=== PATIENT | female | born 1960 ===

== ENCOUNTER 2024-01-05 09:30 | Outpatient (AMB) | payer MEDICARE, SELFPAY ==
--- NOTE | 2024-01-05 09:37 | AM.OFFWIN_ITS ---
Intake Vital Signs 01/05/24 09:39 Height 5 ft 7 in Weight 224 lb BMI 35.1 BP 120/60 Blood Pressure Location Lt brachial Position Sitting Intake Visit Reasons: eye issue ,cough Intake Note: Patient is here today for left eye puss issues and cough since 01/01/24 with phlegms, congestion. No fever, chills nor body aches. Did not test for covid. 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 Accompanied by: Spouse Allergies No Known Allergies Allergy (Verified 01/05/24 09:54) Medication List - Last Reconciled 01/05/24 by Millie Ragsdale, HOT BREAD BAKER-WOOD thyroid (pork) (F[place]um Thyroid) 120 mg PO DAILY Do you need a note to return to daycare/school/sports/work: No HPI HPI Comments History of Present Illness Details Here today with her with complaints of cough and pink eye Left eye purulent drainage last night, crusted shut this AM, Feels scratchy and dry Used saline drops last night Exposed to a grandchild with pink eye like symptoms in the past week Went to a marriage retreat and was exposed to several people who did not exhibit any overt signs of being ill. However her URI symptoms started 24 hours later. She 1st started with a cough on Monday which was nonproductive at 1st. However she now has a productive cough with green to yellow mucus. Does not receive vaccines [facility] Social History Patient Tobacco Use Status: Never used Tobacco Review of Systems Const All systems reviewed & are unremarkable except as noted in HPI and below Physical Exam Vital Signs: Last Vital Signs BP 120/60 01/05/24 09:39 BMI result Body Mass Index 35.1 Const Other: Awake alert oriented accompanied by Left conjunctiva injected, purulent crusting noted and lashes upper and lower. EOMI, PERRLA. Right conjunctiva normal. Sclera is nonicteric bilat. No periorbital findings bilat TM intact and clear bilat Nares with clear drainage bilat, turbinates within normal limits Pharynx within normal limits Regular rate and rhythm Lung sounds clear to auscultation bilat, occasional clearing of throat and dry cough noted during exam without respiratory distress Assessment & Plan Assessment & Plan (1) Acute bacterial conjunctivitis: Code(s): H10.30 - Unspecified acute conjunctivitis, unspecified eye Qualifiers: Laterality: left Qualified Code(s): H10.32 - Unspecified acute conjunctivitis, left eye Plan: Put cold or warm wet cloths on your eye a few times a day if the eye hurts. Do not wear contact lenses or eye makeup until the pink eye is gone. Throw away any eye makeup you were using when you got pink eye. Clean your contacts and storage case. Wash bed linen after 24 hours of antibiotic eye drop use. Do not share eye drops. Use a clean towel to wash your face each day until symptoms are gone. This will help prevent recurrence. What is pink eye? [place] eye is a term people use to describe an infection or irritation of the eye. The medical term for pink eye is conjunctivitis. If you have pink eye, your eye (or eyes) might: ?Turn pink or red ?Weep or ooze a gooey liquid ?Become itchy or burn ?Get stuck shut, especially when you first wake up [place] eye can be caused by an infection, allergies, or an unknown irritation. Can you catch pink eye from someone else? Yes. When pink eye is caused by an infection, it can spread easily. Usually, people catch it from touching something that has been in contact with an infected person's eye. It can also be spread when an infected person touches someone else, and then that person touches their eye. If someone you know has pink eye, avoid touching their pillowcases, towels, or other personal items. When should I see a doctor or nurse? See your doctor or nurse if your eye hurts, or if you still have trouble seeing clearly after blinking. If you do not have these problems, but think you might have pink eye, your doctor or nurse might be able to give you advice over the phone. Can pink eye be treated? Most cases of pink eye go away on their own without treatment. But some types of pink eye can be treated. When pink eye is caused by infection, it is usually caused by a virus, so antibiotics will not help. Still, pink eye caused by a virus can last several days. ?[place] eye caused by an infection with bacteria can be treated with antibiotic eye drops, gel, or ointment. ?[place] eye caused by other problems can be treated with eye drops normally used to treat allergies. These drops will not cure the pink eye, but they can help with itchiness and irritation. When using eye drops for infection, do not touch your healthy eye after touching your infected eye. Also, do not touch the bottle or dropper directly onto 1 eye and then use it in the other. These things can cause the infection to spread from 1 eye to the other. If your eyelids feel swollen, it might also help to hold a cool wet cloth on the area. What if I wear contact lenses? If you wear contact lenses and you have symptoms of pink eye, it is really important to have a doctor look at your eyes. In people who wear contacts, the symptoms of pink eye can be caused by corneal abrasion. Corneal abrasion is a scratch on the eye and can be a serious problem. During treatment for eye infections, you might need to stop wearing your contacts for a short time. If your contacts are disposable, throw them away and use new ones. If your contacts are not disposable, you need to carefully clean them. You should also throw away your contact lens case and get a new one. When can I go back to work or school? If you have pink eye caused by an infection, remember that it can spread very easily. The best way to avoid spreading it is to stay away from other people until you no longer have symptoms. If this is not possible, wash your hands often (figure 1). It's also important to avoid touching your eyes and sharing items that could spread the infection. Schools and day cares usually have rules about when a child with pink eye can return. If a child has a bacterial infection, they will probably need to stay home until they have gotten antibiotic eye drops or ointment for 24 hours. Can pink eye be prevented? To keep from getting or spreading pink eye caused by an infection: ?Wash your hands often with soap and water. ?Try not to touch your eyes. ?Avoid sharing towels, bedding, or other personal items with a person who has pink eye. If your pink eye is caused by allergies, it might help to stay inside with the windows shut as much as possible during peak allergy seasons. What problems should I watch for? Call your doctor or nurse if: ?You have trouble seeing clearly after blinking. ?Your eye is still red or has drainage after 3 days. ?You have eye pain that is getting worse. (2) Bronchitis: Code(s): J40 - Bronchitis, not specified as acute or chronic Plan: . Plan This note is constructed using voice recognition software. While every effort has been made to ensure accuracy in grade recorder, still errors may have been included Sometimes, these errors may affect the content or meaning of the given sentence . Total time spent caring for the patient today was 30 minutes. This includes time spent before the visit reviewing the chart, time spent during the visit, and time spent after the visit on documentation Medications: New azithromycin For 250 mg dose pack: take 500 mg today (day 1), then 250 mg for 4 days (days 2-5) PO 5 days 6 tabs 0RF polymyxin B sulf-trimethoprim 10,000 unit- 1 mg/mL APPLY TO BOTH EYES while awake; do not exceed 6 doses in 24 hours 1 drp ophthalmic (eye) QID 5 days 10 mL 0RF Coding Level of Care Code New Pt Level 3 (33849) Diagnoses Acute bacterial conjunctivitis of left eye H10.32 Laterality: left Bronchitis J40
[2024-01-05 09:39] VITALS: BP 120/60; BMI 35.1
== END 2024-01-05 10:12 | disposition home or self-care (01) ==
PROVIDERS: Visit Provider Nurse Practitioner Family
DX: H10.32 Unspecified acute conjunctivitis, left eye (principal); J40 Bronchitis, not specified as acute or chronic
CPT/HCPCS: 99203